=== PATIENT | female | born 1935 | race Caucasian/White ===

== ENCOUNTER 2017-04-25 09:40 | Emergency (ER) | payer OTHER ==
[2017-04-25] MEDS ORDERED: FLEET ENEMA ADULT PR ONE ×2 (10:28→11:50)
--- NOTE | 2017-04-25 11:17 | ER ---
Nurse's Notes [facility] Name: Evie Salazar Age: 81 yrs Sex: Female : 1935 Arrival Date: 04/25/2017 Time: 09:48 Bed 20 Private MD: Diagnosis: Constipation, unspecified Presentation: 04/25 09:50 Presenting complaint: Patient states: last couple of days, i feel like my ability to hj poop seems slowing down and my last bowel movement was yesterday but in small amount "pellet" like stool; denies abd distention, denies diarrhea; denies abd pain; denies nausea and vomiting;. Transition of care: patient was not received from another setting of care. Onset of symptoms was April 25, 2017. Care prior to arrival: None. 09:50 Method Of Arrival: Ambulatory 09:50 Acuity: FREEMAN 4 hj Triage Assessment: 09:53 General: Appears in no apparent distress. uncomfortable, Behavior is calm, cooperative, hj appropriate for age. Pain: Denies pain. GI: Reports constipation. Historical: - Allergies: 09:53 No Known Allergies; hj - Home Meds: 09:53 None [Active]; hj - PMHx: 09:53 None; hj - PSHx: 09:53 None; hj - Immunization history:: Adult Immunizations up to date. - Social history:: Patient/guardian denies using alcohol, street drugs, The patient lives with family, Smoking status: Patient/guardian denies using tobacco. Screenin:27 Abuse screen: Denies threats or abuse. Nutritional screening: No deficits noted. em Tuberculosis screening: No symptoms or risk factors identified. Fall Risk None identified. Assessment: 09:54 GI: Bowel sounds present X 4 quads. Abd is soft and non tender. hj 10:13 General: Appears in no apparent distress. comfortable, Behavior is calm, cooperative. em General: Reports "I haven't had a regular BM since Thursday, I had a small one yesterday, I am just worried.". Pain: Denies pain. Neuro: Level of Consciousness is awake, alert, obeys commands, Oriented to person, place, time, situation. Cardiovascular: Denies chest pain, Heart tones S1 S2 present Capillary refill < 3 seconds Patient's skin is warm and dry. Respiratory: Airway is patent Respiratory effort is even, unlabored, Respiratory pattern is regular, symmetrical, Breath sounds are clear bilaterally. GI: Reports constipation, "1/10 when sitting" Patient currently denies bloating, cramping, nausea. : No signs and/or symptoms were reported regarding the genitourinary system. EENT: No signs and/or symptoms were reported regarding the EENT system. Derm: Skin is intact, is thin, Skin is pink, warm \\T\\ dry. Musculoskeletal: Range of motion: intact in all extremities. 10:15 Reassessment: The previous assessment is accurate, call light remains within reach. ss 10:36 Reassessment: pt had small bowel movement after administration of fleet enema. ss 11:12 Reassessment: Patient appears in no apparent distress at this time. Patient is alert, em oriented x 3, equal unlabored respirations, skin warm/dry/pink. Patient is alert/active/playful, equal unlabored respirations, skin warm/dry/pink. Patient states feeling better. Patient states symptoms have improved. Vital Signs: 09:54 BP 152 / 87; Pulse 89; Resp 18; Temp 98.3(TE); Pulse Ox 99% on R/A; Weight 46.27 kg; hj Height 5 ft. 4 in. (162.56 cm); Pain 0/10; 11:12 BP 148 / 78; Pulse 77; Resp 16; Pulse Ox 99% on R/A; Pain 0/10; em 09:54 Body Mass Index 17.51 (46.27 kg, 162.56 cm) ED Course: 09:48 Patient arrived in ED. rg4 09:53 Triage completed. hj 09:53 Arm band placed on right wrist. hj 09:57 Darnell Ortega LVN is Primary Nurse. em 09:58 Rama Joe MD is Attending Physician. ma2 10:13 Patient has correct armband on for positive identification. Placed in gown. Bed in low em position. Call light in reach. Side rails up X2. 10:13 No provider procedures requiring assistance completed. Patient did not have IV access em during this emergency room visit. Administered Medications: 10:25 Drug: Fleet Enema 133 ml Route: WI; ss 11:26 Follow up: Response: No adverse reaction em 11:38 Drug: Fleet Enema 133 ml {Note: given to pt to take home per MD.} Route: WI; em 11:38 Follow up: Response: Other; medication given to pt to take home per MD em Outcome: 11:17 Discharge ordered by . ma2 11:40 Discharged to home ambulatory. em 11:40 Condition: good 11:40 Discharge instructions given to patient, Instructed on discharge instructions, follow up and referral plans. medication usage, Demonstrated understanding of instructions, follow-up care, medications, Prescriptions given X 2. 11:41 Patient left the ED. em Signatures: Darnell Ortega, ELEMENTARY TEACHER ELEMENTARY TEACHER em Grecia Soriano, RN RN ss Jacques Silva RN RN hj Garcia, Rubi rg4 Rama Joe MD MD ma2 Corrections: (The following items were deleted from the chart) 09:56 09:50 Presenting complaint: Patient states: last couple of days, i feel like my ability hj to poop seems slowing down and my last bowel movement was yesterday but in small amount "pellet" like stool; denies abd distention, denies diarrhea; denies abd pain; hj 09:56 09:54 Pulse 89bpm; Resp 18bpm; Pulse Ox 99% RA; Temp 98.3F Temporal; 46.27 kg; Height 5 hj ft. 4 in.; BMI: 17.5; Pain 0/10; hj
--- NOTE | 2017-04-25 11:18 | EDPHYS ---
Physician Documentation [facility] Name: Evie Salazar Age: 81 yrs Sex: Female : 1935 Arrival Date: 04/25/2017 Time: 09:48 Bed 20 Private MD: ED Physician Rama Joe HPI: 04/25 10:10 The patient presents to the emergency department with constipation . Onset: The ma2 symptoms/episode began/occurred gradually, 3 day(s) ago. Context: the patient has no known special context relating to the rectal area complaint(s). Associate signs and symptoms: Pertinent negatives: abdominal pain, diarrhea, dysuria, fever, lower GI bleeding, vomiting no prior surgeries. The patient has not experienced similar symptoms in the past. Historical: - Allergies: :53 No Known Allergies; hj - Home Meds: :53 None [Active]; hj - PMHx: :53 None; hj - PSHx: :53 None; hj - Immunization history:: Adult Immunizations up to date. - Social history:: Patient/guardian denies using alcohol, street drugs, The patient lives with family, Smoking status: Patient/guardian denies using tobacco. ROS: 10:10 Constitutional: Negative for fever, chills, and weight loss, Eyes: Negative for injury, ma2 pain, redness, and discharge, Neck: Negative for injury, pain, and swelling, Cardiovascular: Negative for chest pain, palpitations, and edema, Respiratory: Negative for shortness of breath, cough, wheezing, and pleuritic chest pain, Back: Negative for injury and pain, : Negative for injury, bleeding, discharge, and swelling, MS/Extremity: Negative for injury and deformity, Skin: Negative for injury, rash, and discoloration, Neuro: Negative for headache, weakness, numbness, tingling, and seizure, Psych: Negative for depression, anxiety, suicide ideation, homicidal ideation, and hallucinations, Allergy/Immunology: Negative for hives, rash, and allergies, Endocrine: Negative for neck swelling, polydipsia, polyuria, polyphagia, and marked weight changes, Hematologic/Lymphatic: Negative for swollen nodes, abnormal bleeding, and unusual bruising. Exam: 10:10 Constitutional: This is a well developed, well nourished patient who is awake, alert, ma2 and in no acute distress. Head/Face: Normocephalic, atraumatic. Chest/axilla: Normal chest wall appearance and motion. Nontender with no deformity. No lesions are appreciated. Cardiovascular: Regular rate and rhythm with a normal S1 and S2. No gallops, murmurs, or rubs. Normal PMI, no JVD. No pulse deficits. Respiratory: Lungs have equal breath sounds bilaterally, clear to auscultation and percussion. No rales, rhonchi or wheezes noted. No increased work of breathing, no retractions or nasal flaring. Abdomen/GI: Soft, non-tender, with normal bowel sounds. No distension or tympany. No guarding or rebound. No evidence of tenderness throughout. Back: No spinal tenderness. No costovertebral tenderness. Full range of motion. Vital Signs: 09:54 BP 152 / 87; Pulse 89; Resp 18; Temp 98.3(TE); Pulse Ox 99% on R/A; Weight 46.27 kg; hj Height 5 ft. 4 in. (162.56 cm); Pain 0/10; 11:12 BP 148 / 78; Pulse 77; Resp 16; Pulse Ox 99% on R/A; Pain 0/10; em 09:54 Body Mass Index 17.51 (46.27 kg, 162.56 cm) hj MDM: 09:58 Patient medically screened. ma2 10:10 Differential diagnosis: hemorrhoids, fissure, functional constipation. Data reviewed:. ma2 11:16 Data reviewed: vital signs, nurses notes, had a good BM. Counseling: I had a detailed ma2 discussion with the patient and/or guardian regarding: the historical points, exam findings, and any diagnostic results supporting the discharge/admit diagnosis, the presence of at least one elevated blood pressure reading (>120/80) during this emergency department visit, the need for outpatient follow up. Administered Medications: 10:25 Drug: Fleet Enema 133 ml Route: NV; ss 11:26 Follow up: Response: No adverse reaction em 11:38 Drug: Fleet Enema 133 ml {Note: given to pt to take home per MD.} Route: NV; em 11:38 Follow up: Response: Other; medication given to pt to take home per MD em Disposition: 04/25/17 11:17 Discharged to Home. Impression: Constipation, unspecified. - Condition is Stable. - Discharge Instructions: Constipation, Adult. - Prescriptions for Fleet Enema - take 1 ampule by RECTAL route as directed; 3 Cartridge. Colace 100 mg Oral Tablet - take 1 tablet by ORAL route every 12 hours; 14 tablet. - Medication Reconciliation Form, Thank You Letter, Antibiotic Education, Prescription Opioid Use form. - Follow up: Private Physician; When: Tomorrow; Reason: Continuance of care. - Problem is new. - Symptoms have improved. Signatures: Darnell Ortega, COMPOSITOR APPRENTICE COMPOSITOR APPRENTICE Grecia Dodd, RN RN ss Jacques Silva RN RN Rama Joe MD MD ma2
== END 2017-04-25 11:41 | disposition home or self-care (01) ==
LOC: ER 09:40
DX: K59.00 Constipation, unspecified (principal)
CPT/HCPCS: 99283